=== PATIENT | female | born 2000 | race Caucasian/White ===

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

== ENCOUNTER 2022-11-19 10:25 | Emergency (ER) | payer OTHER, SELFPAY ==
[2022-11-19 10:26] VITALS: BP 133/46; PULSE 79; RESP 20; TEMP 36.4; O2SAT 100; BMI 25.3
--- NOTE | 2022-11-19 11:12 | ED_ITS ---
HPI - Wound/Laceration General Chief Complaint: Wound/Laceration Stated Complaint: cut on finger Time Seen by Provider: 11/19/22 10:33 Source: patient Mode of arrival: ambulatory Limitations: no limitations History of Present Illness HPI narrative: Patient is a 22-year-old female who presents emergency department for pain to her left middle digit. She states that yesterday she sustained a laceration to the finger, states that she was dancing on a pole, the pole fell from the ceiling and she subsequently cut the tip of her finger, resulting in avulsion of the nail. She had 12 stitches placed. She states at the time of her discharge she did not make them aware that she was allergic to ibuprofen. She has not trialed any ibuprofen. At this time she is requesting pain medication, pain is 10/10. Patient states she is unaware of who she is supposed to follow up within when she is supposed to follow-up. Related Data Allergies Allergy/AdvReac Type Severity Reaction Status Date / Time ibuprofen [From Motrin] Allergy Eye Verified 11/19/22 10:31 Swelling naproxen Allergy Eye Verified 11/19/22 10:31 Swelling tramadol Allergy Eye Verified 11/19/22 10:31 Swelling Review of Systems Review of Systems: Skin: Laceration as noted in HPI Yes all other systems are reviewed and are negative PMFSH Past Medical History Attestation statement: The following information was validated with the patient. Source: old records reviewed Social History Social History Advance Directives: No Advance Directives Information Provided: No Physical Exam Vital Signs: Vital Signs: Last Vital Signs Temp 97.5 F 11/19/22 10:26 Pulse 79 11/19/22 10:26 Resp 20 11/19/22 10:26 BP 133/46 L 11/19/22 10:26 Pulse Ox 100 11/19/22 10:26 O2 Del Method 11/19/22 10:26 BMI result Body Mass Index 25.3 Appearance: Alert.?Oriented to person, place and time. No acute distress.?Normal affect. Neck: Normal inspection.? Neck supple.?? CVS: Heart sounds normal. Normal heart rate and rhythm.? Pulses normal.?? Respiratory: No respiratory distress.? Lung sounds clear to auscultation bilaterally?? Abdomen: Soft and non-tender. Skin: Skin warm and dry.? Normal skin color. Extremities: Decreased flexion to tip of left middle digit Neuro: Moves all extremities spontaneously. Sensation intact bilaterally. Ambulates with normal steady gait. Course Reevaluation(s) Reevaluation #1: At this time unable to obtain records from [facility]. Xeroform dr floyd applied to left middle digit. Patient states that she does not want to wait here any longer she would like to leave at this time. When discussing pain management, discussed the use of acetaminophen. Review external medication log indicates she received a prescription for tramadol yesterday, for mass pat does not appears the patient picked up this medication. When asking about what her r eaction to this medication is, as it is listed as an allergy she became upset and states I'm just going to leave and follow-up with them , and left the room. Time: 11:59 Medications Administered Discontinued Medications Generic Name Dose Route Start Last Admin Trade Name Freq PRN Reason Stop Dose Admin Acetaminophen 975 mg 11/19/22 11:08 11/19/22 11:14 Acetaminophen 325 Mg Tablet PO 11/19/22 11:09 975 mg ONCE ONE Administration Medical Decision Making Medical Decision Making MDM Narrative: Patient is a 22-year-old female who presents emergency department for evaluation of pain associated with laceration to the left middle digit. She was evaluated at [facility] ER last night, states that she had tetanus vaccine updated, x-ray done which was ?normal?, stitches were placed and was covered with Xeroform dressing and advised to follow-up with the doctor on Monday. Currently Reporting pain 9/10 at this time pain has not trial OTC acetaminophen at this time, reports allergy to NSAID. Acetamonophen administered. At the time of exam 12 sutures are currently intact. Attempting to obtain records from [facility] to provide patient follow-up instruction. Prescription Management I considered prescription management with: Pain Medication Discharge Plan Discharge Clinical Impression: Laceration Patient Disposition: Home, Self-Care Additional Instructions: Follow-up as instructed from [facility] regarding management of the laceration to your left middle finger, and appropriate suture removal. You can take Tylenol 500 mg, 2 tablets (1,000mg) every 4-6 hours as needed for pain, but not to exceed 3 doses daily (3,000mg).? Referrals: Physician,None [Primary Care Provider] - Interventions: ED Discharge Assessment Last Done: 11/19/22 12:01 Discharge Date/Time: 11/19/22 12:01
[2022-11-19] MEDS: Acetaminophen 325 MG TABLET 975 MG PO (11:14)
== END 2022-11-19 12:01 | disposition home or self-care (01) ==
PROVIDERS: Emergency Provider Emergency Medicine
DX: S61.313A Laceration without foreign body of left middle finger with damage to nail, initial encounter (principal); W45.8XXA Other foreign body or object entering through skin, initial encounter; Y93.41 Activity, dancing; Y92.511 Restaurant or cafe as the place of occurrence of the external cause; Y99.9 Unspecified external cause status
CPT/HCPCS: 99283